=== PATIENT | female | born 1980 | race Two or more races ===

== ENCOUNTER 2023-12-07 05:53 | Emergency (ER) | payer OTHER ==
[~2023-12-07] VITALS: Ht 162.6 cm; Wt 61.2 kg
[2023-12-07] MEDS ORDERED: TOPROL XL50 M1 PO (06:11)
[2023-12-07] MEDS ORDERED: SERTRALINE HCL50 MG PO (06:12)
[2023-12-07] MEDS ORDERED: PANTOPRAZOLE SO40 MG PO (06:13)
[2023-12-07] MEDS ORDERED: FAMOTIDINE/PF 20 MG/2 ML VIAL IV PUSH STA (06:56)
[2023-12-07] MEDS ORDERED: HYOSCYAMINE SULFATE 0.125 MG TAB.SUBL SL STA (06:56)
[2023-12-07] MEDS ORDERED: PROMETHAZINE HCL 50 MG/ML AMPUL IM STA (06:56)
[2023-12-07] MEDS ORDERED: LACTOBACILLUS ACIDOPHILUS 1 CAP CAP PO STA (06:57)
[2023-12-07] MEDS ORDERED: 0.9 % SODIUM CHLORIDE 1,000 ML IV ONE (07:00)
[2023-12-07 07:33] LABS: HEMATOCRIT 35.6 % (36.0-45.00); MEAN CELL VOLUME 82.9 fL (80.00-100.00); MEAN CORPUSCULAR HGB CONC 33.8 g/dl (32.0-36.0); PLATELET COUNT 233 K/uL (150-450); RED BLOOD COUNT 4.29 M/uL (4.00-6.00); RED CELL DISTRIBUTION WIDTH 15.3 % (11.5-14.5)
[2023-12-07 07:42] LABS: CALCIUM 9.2 mg/dL (8.5-10.1); CREATININE SERUM 0.86 mg/dL (0.55-1.02); GFR 72.36; POTASSIUM 3.37 mEq/L (3.5-5.1)
[2023-12-07] MEDS ORDERED: ONDANSETRON HCL 2 MG/ML VIAL IV ONE (10:00)
[2023-12-07] MEDS ORDERED: ONDANSETRON ODT8 MG PO (11:54)
[2023-12-07] MEDS ORDERED: PEPCID AC20 MG PO (11:54)
== END 2023-12-07 12:23 | disposition home or self-care (01) ==
LOC: ER 05:53
PROVIDERS: General Practice
DX: K52.89 Other specified noninfective gastroenteritis and colitis (principal); Z88.8 Allergy status to other drugs, medicaments and biological substances; I48.91 Unspecified atrial fibrillation